=== PATIENT | female | born 1990 | race Caucasian/White ===

== ENCOUNTER → 2017-10-30 | Outpatient (CLI) | payer OTHER ==
--- NOTE | 2017-10-30 14:01 | DIAGNOSTIC IMAGING REPORT ---
CHEST 2 VIEWS ROUTINE CLINICAL HISTORY: 27 years-old Female presenting with RIGHT SIDED CHEST WALL PAIN R07.89 STAT. TECHNIQUE: PA and lateral views of the chest were obtained. COMPARISON: None. FINDINGS: Cardiomediastinal silhouette normal. Lungs and pleural spaces clear. Osseous structures normal. Upper abdomen normal. IMPRESSION: 1. No acute cardiopulmonary disease. Electronically signed by: Chester Mejia M.D. 10/30/2017 2:00 PM Dictated Date/Time: 10/30/2017 1:59 PM
--- NOTE | 2017-10-30 14:03 | DIAGNOSTIC IMAGING REPORT ---
R RIBS UNILATERAL MIN 2 VIEWS CLINICAL HISTORY: 27 years-old Female presenting with RIGHT SIDED CHEST WALL PAIN R07.89 STAT, pain under the right breast since Friday. TECHNIQUE: Frontal and oblique views of the right ribs were obtained. COMPARISON: None. FINDINGS: No displaced right rib fracture. Visualized portion of the thorax normal. The right breast is grossly normal-appearing. Right upper quadrant normal. IMPRESSION: No displaced right rib fracture. Electronically signed by: Chester Mejia M.D. 10/30/2017 2:01 PM Dictated Date/Time: 10/30/2017 2:00 PM
== END | disposition home or self-care (01) ==
LOC: C.RAD 13:36
PROVIDERS: ATTEND Nurse Practitioner
DX: R07.89 Other chest pain (principal); R07.81 Pleurodynia